=== PATIENT | male | born 1940 | race American Indian/Alaskan Native ===

== ENCOUNTER 2018-06-24 06:21 | Day surgery (SDC) | payer MEDICARE ==
[2018-06-24] MEDS ORDERED: NACL BACTERIOSTATIC INFILTRATI ONE (06:26)
[2018-06-24] MEDS ORDERED: DILAUDID IV PRN (07:11)
[2018-06-24] MEDS ORDERED: ZOFRAN IV PRN (07:11)
[2018-06-24] MEDS ORDERED: PEPCID IV ONE (07:19)
[2018-06-24] MEDS ORDERED: SUBLIMAZE ONE ×2 (07:49→09:17)
[2018-06-24] MEDS ORDERED: DIPRIVAN 10 MG/ML IV ONE (07:50)
[2018-06-24] MEDS ORDERED: NACL 0.9% 1000 ML 1,000 ML ONE (07:55)
[2018-06-24] MEDS ORDERED: ANCEF/STERILE WATER 2 GM/20 ML IV NR (08:00)
[2018-06-24] MEDS ORDERED: LACTATED RINGERS 1,000 ML IV SCH (08:00)
--- NOTE | 2018-06-24 08:32 | Anesthesia Day of Surgery ---
Anesthesia Day of Surgery - Day of Surgery Patient Examined: Yes Patient H&P Reviewed: Yes Patient is NPO: Yes
--- NOTE | 2018-06-24 08:32 | Anesthesia Consultation ---
Anesthesia Consult and Med Hx Date of service: 06/24/18 - Airway Anesthetic Teeth Evaluation: Partials, Edentulous ROM Head & Neck: Adequate Mental/Hyoid Distance: Adequate Mallampati Class: Class II Intubation Access Assessment: Probably Good - Pulmonary Exam CTA: Yes - Cardiac Exam Cardiac Exam: RRR - Pre-Operative Health Status ASA Pre-Surgery Classification: ASA3 Proposed Anesthetic Plan: General (Ga with LMA) - Pulmonary Hx Smoking: Yes (STOPPED X 50 YRS) Hx Sleep Apnea: No (GERARDO PRE SCREEN HIGH RISK.) - Cardiovascular System Hx Hypertension: Yes (X 10 YRS) Hx Heart Attack/AMI: No Hx Valvular Heart Disease: Yes (aortic valve replacement 2016)
[2018-06-24] MEDS ORDERED: ZOFRAN ONE (09:13)
[2018-06-24] MEDS ORDERED: XYLOCAINE MPF 2% ONE (09:13)
[2018-06-24] MEDS ORDERED: ePHEDrine SULFATE ONE (09:14)
[2018-06-24] MEDS ORDERED: LASIX ONE (09:30)
--- NOTE | 2018-06-24 09:46 | Post Operative Note ---
Date of procedure: 06/24/18 Pre-op diagnosis: rec cap Post-op diagnosis: same Findings: cysto cryo ablation prostate Procedure: as above Anesthesia: GETA Surgeon: ALEAH JENSEN Estimated blood loss: minimal Pathology: none Condition: stable Disposition: PACU
--- NOTE | 2018-06-24 09:47 | Discharge Summary ---
Short Stay Discharge Plan Activity: other (no straining ) Weight Bearing Status: Full Weight Bearing Diet: low fat Wound: other (ice packs to perineum ) Special Instructions: other (inc fluids ) Durable Medical Equipment Needed Upon Discharge: other (home with mina ) Follow up with: DR DANIELA [Other] - 7 Days ALEAH JENSEN MD [Staff Physician] - 7 Days
[2018-06-24] MEDS ORDERED: WATER FOR IRRIG STERILE IR ONE (10:10)
[2018-06-24] MEDS ORDERED: NACL 0.9% IR ONE (10:11)
--- NOTE | 2018-06-24 11:17 | Operative Report ---
PREOPERATIVE DIAGNOSIS: Adenocarcinoma of the prostate. POSTOPERATIVE DIAGNOSIS: Adenocarcinoma of the prostate. PROCEDURES: Cystoscopy, cryoablation of the prostate. SURGEON: Johann Gamboa MD ANESTHESIA: General. FINDINGS: This is a gentleman with recurrent prostate cancer after seed implantation and cryosurgery. He has one area of focus of cancer at the apex, his PSA was going up and he elected to undergo for cryoablation of prostate. All the risks and implications were discussed. DESCRIPTION OF PROCEDURE: The patient brought to the operating room and placed on the operating table. Following induction of anesthesia, placed in lithotomy position, prepped and draped in the usual sterile fashion. Monique catheter was easily inserted and the ultrasound probe was placed. Excellent visualization was achieved. However, there were lots the seeds. We were able to measure the gland, it was approximately 28 g. At this point, we dropped the table intermittently, especially before we did the freezing to give us plenty of room from the rectum because there was a big prominent rectourethralis that went up and very acute angle almost 90 degrees. Probes 1 and 2 were placed after the measurement according to the computer, but we had to modify it a little bit because after the first cryoprobe was placed, there was movement of the gland. We were careful to stay away from the urethra. The patient tolerated the procedure well. Denonvilliers was placed mostly in the rectourethralis, so it would stay warm. We want to make sure that it did not drop much at all. It was not in the gland. At this point, probes 3 and 4 and then 5 and 6 were placed both in the AP and sagittal images in order to get excellent coverage, especially to the apex on the right side. The patient tolerated the procedure well. The temperature probe was also placed at the same time of Denonvilliers probe. At this point, we checked the probe and multiple images. This Monique catheter was removed. There was no urethral injury and the stiff wire was placed with the cystoscope and under ultrasound guidance, the warmer was placed. Once we checked all the probes again, freeze was carried out starting at 1 and 2 at 40-60 and then 3 and 4 at 20-50, and then at probes 5 and 6, we started at 10, went up to 40. Excellent coverage was obtained. Excellent freeze was obtained. We had the ice cold less than the middle and Denonvilliers was excellent. Again, we dropped the unit down a little bit, so we had plenty of room because he was a retreat and he has had previous radiation . A thaw was carried out for approximately 9 minutes and then a second freeze was carried out after which, we rechecked the probe and a second thaw was carried out. The patient tolerated the procedure well and brought to recovery room after a 20-minute thaw and a warmer and he had a 20-B[place]hi coude catheter in stable condition. JOB# [id number] ROSEMARIE/KELI
--- NOTE | 2018-06-24 12:12 | Post Anesthesia Evaluation ---
- Post Anesthesia Evaluation Patient Participated: Yes Airway Patent: Yes Stable Respiratory Function: Yes Nausea/Vomiting: No Temp > 96.8F: Yes Pain Manageable: Yes Adequeate Hydration: Yes Anesthesia Complications: No
[2018-06-24 12:25] VITALS: BP 134/74
== END 2018-06-24 11:48 | disposition home or self-care (01) ==
LOC: OR 06:21
PROVIDERS: ATTEND Urology
DX: C61 Malignant neoplasm of prostate (principal); I10 Essential (primary) hypertension; E11.9 Type 2 diabetes mellitus without complications; I25.10 Atherosclerotic heart disease of native coronary artery without angina pectoris; Z95.2 Presence of prosthetic heart valve; Z98.41 Cataract extraction status, right eye; Z87.891 Personal history of nicotine dependence; Z98.890 Other specified postprocedural states; Z79.899 Other long term (current) drug therapy; Z79.84 Long term (current) use of oral hypoglycemic drugs
CPT/HCPCS: 55873; 82962; A4217; C2618; J0690; J1940; J2405; J2704; J3010; J7030; J7120

== ENCOUNTER 2022-02-16 08:31 | Outpatient (CLI) | payer MEDICARE ==
--- NOTE | 2022-02-17 09:22 | Nuclear Medicine Report ---
NUCLEAR MEDICINE BONE SCAN, WHOLE BODY INDICATION / CLINICAL INFORMATION: PROSTATE CANCER C61. TECHNIQUE: 27.1 mCi of Tc-99m MDP were injected IV. Images were obtained of the whole body. COMPARISON: No relevant prior imaging study available. FINDINGS: BONES: There is a solitary focus of increased radiotracer uptake within the left frontal bone. JOINTS: Mild scattered degenerative activity in the lumbar spine, bilateral shoulder girdles, bilater al knees and bilateral feet. SOFT TISSUES: No significant abnormality. KIDNEYS: No significant abnormality. ADDITIONAL FINDINGS: None. IMPRESSION: 1. Solitary focus of increased radiotracer uptake within the left frontal bone. CT of the head recomm ended for further evaluation. 2. Scattered degenerative activity as above. Signer Name: Andi Ca DO Signed: 02/17/2022 9:17 AM Workstation Name: [id number]
== END 2022-02-16 08:32 | disposition home or self-care (01) ==
LOC: NM 08:31
PROVIDERS: ATTEND Urology
DX: C61 Malignant neoplasm of prostate (principal); M17.0 Bilateral primary osteoarthritis of knee; M19.012 Primary osteoarthritis, left shoulder; M19.011 Primary osteoarthritis, right shoulder; M19.072 Primary osteoarthritis, left ankle and foot; M19.071 Primary osteoarthritis, right ankle and foot; M47.816 Spondylosis without myelopathy or radiculopathy, lumbar region
CPT/HCPCS: 78306; A9503